=== PATIENT | male | born 1970 | race Caucasian/White ===

== ENCOUNTER 2017-11-20 22:59 | Emergency (ER) | payer MEDICAID ==
[~2017-11-20] VITALS: Ht 185.4 cm; Wt 100.8 kg
[2017-11-20] MEDS ORDERED: SULF1TAB49 PO (23:46)
[2017-11-20 23:50] VITALS: BP 139/79
== END 2017-11-20 23:50 | disposition home or self-care (01) ==
LOC: ER 23:02
DX: L02.413 Cutaneous abscess of right upper limb (principal); G89.29 Other chronic pain; Z79.899 Other long term (current) drug therapy
CPT/HCPCS: 99283

== ENCOUNTER 2018-06-18 01:01 | Emergency (ER) | payer MEDICAID ==
[~2018-06-18] VITALS: Ht 185.4 cm; Wt 101.2 kg
[2018-06-18 01:12] VITALS: BP 127/83
[2018-06-18] MEDS ORDERED: SULF1TAB48 PO (01:22)
== END 2018-06-18 01:31 | disposition home or self-care (01) ==
LOC: ER 01:01
DX: L03.011 Cellulitis of right finger (principal); G89.29 Other chronic pain
CPT/HCPCS: 99283

== ENCOUNTER 2018-12-03 04:32 | Emergency (ER) | payer MEDICAID ==
[~2018-12-03] VITALS: Ht 182.9 cm; Wt 113.0 kg
[~2018-12-03 04:32] MED LIST: HYDR-4383 PO
[2018-12-03 04:37] VITALS: BP 132/78
[2018-12-03] MEDS ORDERED: TETanus/Pertussis (Acell)/Diphther VAC/PF (Tdap-Adult) 0.5ml syringe IM ONE (04:50)
== END 2018-12-03 04:56 ==
LOC: ER 04:33
DX: S80.211A Abrasion, right knee, initial encounter (principal); Z02.89 Encounter for other administrative examinations; G89.29 Other chronic pain; W50.0XXA Accidental hit or strike by another person, initial encounter; Y93.89 Activity, other specified; Y92.89 Other specified places as the place of occurrence of the external cause; Y99.9 Unspecified external cause status
CPT/HCPCS: 90471; 90715; 99283

== ENCOUNTER 2024-01-11 04:34 | Emergency (ER) | payer MEDICAID ==
[~2024-01-11] VITALS: Ht 182.9 cm; Wt 108.0 kg
[2024-01-11 04:43] VITALS: BP 133/92; TEMP 98
[2024-01-11] MEDS: ondansetron 4mg rapidly disintigrating tab PO ONE (05:10)
[2024-01-11] MEDS: HYDROcodone/acetaminophen 5mg/325mg tablet PO ONE (05:10)
[2024-01-11] MEDS: ibuprofen tablet 400 MG TABLET PO ONE (05:11)
[2024-01-11] MEDS ORDERED: HYDR-3965 PO (05:56)
[2024-01-11 06:03] VITALS: PULSE 76; RESP 16; O2SAT 95
== END 2024-01-11 06:05 | disposition home or self-care (01) ==
LOC: ER 04:34
DX: M25.561 Pain in right knee (principal); G89.29 Other chronic pain; Z79.899 Other long term (current) drug therapy; Z79.2 Long term (current) use of antibiotics
CPT/HCPCS: 73560; 99284